=== PATIENT | female | born 1990 | race Caucasian/White ===

== ENCOUNTER 2021-10-03 08:19 | Emergency (ER) | payer OTHER ==
[2021-10-03 08:39] VITALS: BP 115/75; PULSE 80; TEMP 98; BMI 34.2
[2021-10-03] MEDS ORDERED: FAMOTIDINE 10 MG TABLET PO ONE (09:23)
[2021-10-03] MEDS ORDERED: ACETAMINOPHEN 500 MG TABLET (FP) PO ONE (09:23)
[2021-10-03] MEDS ORDERED: MAG HYDROX/AL HYDROX/SIMETH -MYLANTA- ORAL SUSPENSION PO ONE (09:23)
[2021-10-03] MEDS ORDERED: FAMOTIDINE 20 MG TABLET ONE (10:00)
[2021-10-03] MEDS ORDERED: MAG HYDROX/AL HYDROX/SIMETH 30 ML UNIT-DOSE CUP ONE (10:00)
[2021-10-03] MEDS ORDERED: ACETAMINOPHEN 325 MG TABLET (FP) ONE (10:00)
== END 2021-10-03 10:25 | disposition left against medical advice (07) ==
LOC: JER 08:19
DX: R07.9 Chest pain, unspecified (principal)
CPT/HCPCS: 0241U-QW; 71046-TC-FY; 93005; 93010; 99285-25

== ENCOUNTER 2021-10-05 20:14 | Emergency (ER) | payer OTHER ==
[2021-10-05 20:30] VITALS: BP 97/69; PULSE 68; TEMP 98; BMI 33.5
== END 2021-10-05 21:38 | disposition left against medical advice (07) ==
LOC: JER 20:14
DX: R31.9 Hematuria, unspecified (principal)
CPT/HCPCS: 99282-25

== ENCOUNTER 2023-12-17 12:13 | Emergency (ER) | payer OTHER ==
[2023-12-17 12:51] VITALS: BP 112/70; PULSE 73; RESP 20; TEMP 98.2; BMI 36.1
[2023-12-17 13:56] LABS: HCG,QUALITATIVE URINE Negative
[2023-12-17 13:59] LABS: EPITHELIAL CELLS 0-5 /hpf
== END 2023-12-17 15:32 | disposition home or self-care (01) ==
LOC: FER 12:13
DX: R10.2 Pelvic and perineal pain (principal); R10.32 Left lower quadrant pain; N83.202 Unspecified ovarian cyst, left side
CPT/HCPCS: 76830-TC; 81003; 81015; 84703; 99284-25